=== PATIENT | male | born 1955 | race Caucasian/White ===

== ENCOUNTER 2024-06-27 13:37 | Inpatient (IN) | payer MEDICARE, OTHER ==
[~2024-06-27] VITALS: Ht 157.5 cm; Wt 43.5 kg
[~2024-06-27 13:37] MED LIST: AMOX-427 PO
[2024-06-27 14:16] LABS: BASOPHILS # (AUTO) 0.1 K/uL (0.0-0.2); BASOPHILS % (AUTO) 0.3 % (0.0-2.0); EOSINOPHILS # (AUTO) 0.2 K/uL (0.0-0.7); EOSINOPHILS % (AUTO) 0.9 % (0.0-6.0); HEMATOCRIT 28 % (39-51); HEMOGLOBIN 9.4 g/dL (13.5-17.5); LYMPHOCYTES % (AUTO) 5.5 % (20.0-44.0); MEAN CORPUSCULAR HEMOGLOBIN 32 PG (26.0-33.0); MEAN CORPUSCULAR HGB CONC 33 g/dl (31.0-36.0); MEAN CORPUSCULAR VOLUME 98 fL (80-96); MONOCYTES % (AUTO) 5.7 % (2.0-12.0); NEUTROPHILS % (AUTO) 87.6 % (43.0-81.0); PLATELET COUNT (AUTO) 566 K/uL (150-450); WHITE BLOOD COUNT (AUTO) 18.3 K/uL (4.3-11.0)
[2024-06-27 14:31] LABS: INR 1.02 (0.91-1.10); PARTIAL THROMBOPLASTIN TIME 32.9 SEC (24.3-34.3); PROTHROMBIN TIME 10.8 SECS (9.2-11.1)
[2024-06-27 14:58] LABS: ALBUMIN 1.9 g/dL (3.4-5.0); BILIRUBIN,DIRECT 0.1 mg/dL (0.0-0.2); BILIRUBIN,TOTAL 0.3 mg/dL (0.2-1.0); CALCIUM, SERUM 9.2 mg/dL (8.5-10.1); CREATININE 0.7 mg/dL (0.6-1.3); POTASSIUM 3.7 mmol/L (3.5-5.1); TOTAL PROTEIN, SERUM 8.3 g/dL (6.4-8.2)
[2024-06-27 15:02] LABS: LACTIC ACID 1.2 mmol/L (0.4-2.0)
[2024-06-27] MEDS: PIPERACILLIN /TAZOBACTAM 3.375 G in IV D5W 50 ML IV ONE (16:00)
[2024-06-27] MEDS: VANCOMYCIN 1 GM in IV D5W 250 ML IV ONE (16:31)
[2024-06-27] MEDS ORDERED: GABA300C PO (16:42)
[2024-06-27] MEDS ORDERED: BISA10SU11 RC (16:42)
[2024-06-27] MEDS ORDERED: CHOL100043 PO (16:42)
[2024-06-27] MEDS ORDERED: SERT50TA12 PO (16:42)
[2024-06-27] MEDS ORDERED: INSU100V7 SQ (16:42)
[2024-06-27] MEDS ORDERED: GLUC1KIT IM (16:42)
[2024-06-27] MEDS ORDERED: FLUT1BLS IH (16:42)
[2024-06-27] MEDS ORDERED: MULT-213 PO (16:42)
[2024-06-27] MEDS ORDERED: NITR0.4T48 SL (16:42)
[2024-06-27] MEDS ORDERED: FOLI0.8T3 PO (16:42)
[2024-06-27] MEDS ORDERED: CLOP75TA15 PO (16:42)
[2024-06-27] MEDS ORDERED: ATOR40TA PO (16:42)
[2024-06-27] MEDS ORDERED: EMPA25TA PO (16:42)
[2024-06-27] MEDS ORDERED: SENN-261 PO (16:42)
[2024-06-27] MEDS ORDERED: TAMS-12 PO (16:42)
[2024-06-27] MEDS ORDERED: POTA10TA11 PO (16:42)
[2024-06-27] MEDS ORDERED: OMEP20CA15 PO (16:42)
[2024-06-27] MEDS ORDERED: ACET325T53 PO (16:42)
[2024-06-27] MEDS ORDERED: ASPI-1169 PO (16:42)
[2024-06-27] MEDS ORDERED: ASCO500T10 PO (16:42)
[2024-06-27] MEDS ORDERED: IPRA3AMP23 NEB (16:42)
[2024-06-27] MEDS ORDERED: INSU100V39 SQ (16:42)
[2024-06-27] MEDS ORDERED: TRAM50TA2 PO (16:42)
[2024-06-27] MEDS ORDERED: SENNOSIDES 8.6 MG TABLET PO PRN (18:00)
[2024-06-27] MEDS ORDERED: ONDANSETRON HCL/PF 4 MG/2 ML VIAL IVP PRN (18:00)
[2024-06-27] MEDS: GABAPENTIN 300 MG CAPSULE PO SCH (18:17)
[2024-06-27] MEDS: ASPIRIN 81 MG TAB.CHEW PO SCH (18:17)
[2024-06-27] MEDS: LISINOPRIL (5MG) 5 MG TABLET PO SCH (18:17)
[2024-06-27] MEDS: ENOXAPARIN SODIUM 40 MG/0.4 ML DISP.SYRIN SQ SCH (18:18)
[2024-06-27] MEDS: INSULIN GLARGINE, 100 UNIT/ML CARTRIDGE SQ SCH (19:23)
[2024-06-27 19:50] VITALS: O2SAT 96
[2024-06-27] MEDS: BUDESONIDE RESPULE INH 0.5 MG/2 ML AMPUL.NEB NEB SCH (19:53)
[2024-06-27 20:00] VITALS: BP 140/80; TEMP 98.8; O2SAT 100; O2SAT 99
[2024-06-27] MEDS: ALBUTEROL FS 2.5 MG/3 ML VIAL.NEB NEB SCH (20:02)
[2024-06-27] MEDS: IV NS 0.9% 1,000 ML IV PRN (21:05)
[2024-06-27] MEDS: ATORVASTATIN 40 MG TABLET PO SCH (21:14)
[2024-06-27] MEDS: TAMSULOSIN 0.4 MG CAP.SR.24H PO SCH (21:14)
[2024-06-27] MEDS: BLOOD SUGAR DIAGNOSTIC 1 EACH STRIP IN SCH (21:32)
[2024-06-27] MEDS: INSULIN REGULAR, HUMAN 100 UNIT/ML 3 ML VIAL SQ PRN (21:34)
[2024-06-27] MEDS: PIPERACILLIN /TAZOBACTAM 3.375 G in IV D5W 100 ML IV SCH (23:03)
[2024-06-28] VITALS (9 sets, daily range): BP systolic 94–135; BP diastolic 50–66; TEMP 97.5–98.4; O2SAT 96–100
[2024-06-28] MEDS: VANCOMYCIN 750 MG in IV D5W 250 ML IV SCH (04:25)
[2024-06-28] MEDS: TRAMADOL HCL 50 MG TABLET PO PRN (05:01)
[2024-06-28 06:58] LABS: BASOPHILS % (AUTO) 0.2 % (0.0-2.0); EOSINOPHILS # (AUTO) 0.2 K/uL (0.0-0.7); EOSINOPHILS % (AUTO) 1.7 % (0.0-6.0); HEMATOCRIT 25 % (39-51); HEMOGLOBIN 8.7 g/dL (13.5-17.5); LYMPHOCYTES # (AUTO) 1.9 K/uL (0.8-4.8); MEAN CORPUSCULAR HEMOGLOBIN 33 PG (26.0-33.0); MEAN CORPUSCULAR HGB CONC 34 g/dl (31.0-36.0); MEAN CORPUSCULAR VOLUME 96 fL (80-96); MONOCYTES # (AUTO) 1.3 K/uL (0.1-1.30); MONOCYTES % (AUTO) 9.2 % (2.0-12.0); NEUTROPHILS # (AUTO) 10.3 K/uL (1.8-8.9); NEUTROPHILS % (AUTO) 74.9 % (43.0-81.0); PLATELET COUNT (AUTO) 477 K/uL (150-450); RED BLOOD CELL COUNT(AUTO) 2.64 MIL/uL (4.5-6.0); RED CELL DISTRIBUTION WIDTH 12.8 % (11.5-15.0); WHITE BLOOD COUNT (AUTO) 13.8 K/uL (4.3-11.0)
[2024-06-28 07:05] LABS: CALCIUM, SERUM 8.6 mg/dL (8.5-10.1); CREATININE 0.8 mg/dL (0.6-1.3); PHOSPHORUS 2.5 mg/dL (2.5-4.9); POTASSIUM 3.4 mmol/L (3.5-5.1)
[2024-06-28] MEDS: MULTIVIT W/MINERALS 1 TAB TABLET PO SCH (08:48)
[2024-06-28] MEDS: FOLIC ACID 1 MG TABLET PO SCH (08:48)
[2024-06-28] MEDS: SERTRALINE HCL 50 MG TABLET PO SCH (08:48)
[2024-06-28] MEDS: PANTOPRAZOLE 40 MG TABLET.DR PO SCH (08:48)
[2024-06-28] MEDS: CLOPIDOGREL BISULFATE 75 MG TABLET PO SCH (08:49)
[2024-06-28] MEDS: ASCORBIC ACID 500 MG TABLET PO SCH (08:49)
[2024-06-28] MEDS: CHOLECALCIFEROL 1,000 UNIT TABLET (VIT D3) PO SCH (08:49)
[2024-06-28] MEDS ORDERED: FLUTICASONE/VILANTEROL 1 EACH BLST.W.DEV IH SCH (09:00)
[2024-06-28] MEDS: EMPAGLIFLOZIN 25 MG TABLET PO SCH (09:26)
[2024-06-28] MEDS: POTASSIUM CHLORIDE 20 MEQ TAB.PRT.SR PO SCH (10:34)
[2024-06-28] MEDS ORDERED: VANCOMYCIN 1 GM VIAL ONE (12:44)
[2024-06-28] MEDS ORDERED: LIDOCAINE 1% INJ 50 ML MDV IJ ONE (12:44)
[2024-06-28] MEDS ORDERED: FENTANYL PF 100MCG/2ML AMPUL ONE (13:26)
[2024-06-28] MEDS ORDERED: ROCURONIUM BROMIDE 50 MG/5 ML ONE (13:26)
[2024-06-28] MEDS ORDERED: LIDOCAINE 1%-EPI 1:100,000 20 ML VIAL ONE (14:11)
[2024-06-28] MEDS ORDERED: BUPIVACAINE 0.5 % PF 150 MG/30 ML VIAL ONE (14:11)
[2024-06-28] MEDS ORDERED: POLYMYXIN B SULFATE 500,000 UNITS ONE (14:56)
[2024-06-28 20:58] LABS: THYROID STIMULATING HORMONE 1.56 uIU/mL (0.358-3.74)
[2024-06-28 23:32] LABS: HEMOGLOBIN 8.3 g/dL (13.5-17.5)
[2024-06-29] VITALS (40 sets, daily range): BP systolic 87–156; BP diastolic 51–94; TEMP 97.9–98.8; O2SAT 94–99
[2024-06-29 06:57] LABS: CALCIUM, SERUM 8.7 mg/dL (8.5-10.1); CREATININE 0.7 mg/dL (0.6-1.3); PHOSPHORUS 3.2 mg/dL (2.5-4.9); POTASSIUM 4.1 mmol/L (3.5-5.1)
[2024-06-29 08:23] LABS: BASOPHILS % (AUTO) 0.2 % (0.0-2.0); EOSINOPHILS # (AUTO) 0.2 K/uL (0.0-0.7); HEMATOCRIT 23 % (39-51); HEMOGLOBIN 7.5 g/dL (13.5-17.5); LYMPHOCYTES % (AUTO) 6.4 % (20.0-44.0); MEAN CORPUSCULAR HEMOGLOBIN 32 PG (26.0-33.0); MEAN CORPUSCULAR HGB CONC 33 g/dl (31.0-36.0); MEAN CORPUSCULAR VOLUME 97 fL (80-96); MONOCYTES % (AUTO) 6.3 % (2.0-12.0); NEUTROPHILS # (AUTO) 13.3 K/uL (1.8-8.9); NEUTROPHILS % (AUTO) 86.1 % (43.0-81.0); PLATELET COUNT (AUTO) 431 K/uL (150-450); RED BLOOD CELL COUNT(AUTO) 2.36 MIL/uL (4.5-6.0); RED CELL DISTRIBUTION WIDTH 12.9 % (11.5-15.0); WHITE BLOOD COUNT (AUTO) 15.5 K/uL (4.3-11.0)
[2024-06-29] MEDS ORDERED: MUPIROCIN OINT 2% 22 GM TUBE TP SCH (09:00)
[2024-06-29] MEDS: MUPIROCIN OINT 2% 22 GM TUBE TP SCH (09:18)
[2024-06-29] MEDS ORDERED: LIDOCAINE HCL/MPF 1% 30 ML VIAL IJ ONE (12:41)
[2024-06-29] MEDS ORDERED: FENTANYL PF 100MCG/2ML AMPUL ONE (12:51)
[2024-06-29] MEDS ORDERED: HEPARIN SODIUM, PORCINE 1,000 UNIT/ML VIAL ONE (13:07)
[2024-06-30] VITALS (26 sets, daily range): BP systolic 92–153; BP diastolic 49–81; TEMP 98–98.3; O2SAT 94–100
[2024-06-30] MEDS: DEXTROSE 50%-WATER 50 ML DISP.SYRIN IV PRN (07:34)
[2024-06-30 10:24] LABS: CALCIUM, SERUM 8.9 mg/dL (8.5-10.1); CREATININE 0.7 mg/dL (0.6-1.3); POTASSIUM 3.4 mmol/L (3.5-5.1)
[2024-06-30 10:35] LABS: BASOPHILS # (AUTO) 0.1 K/uL (0.0-0.2); BASOPHILS % (AUTO) 0.3 % (0.0-2.0); EOSINOPHILS # (AUTO) 0.2 K/uL (0.0-0.7); EOSINOPHILS % (AUTO) 1.1 % (0.0-6.0); HEMATOCRIT 21 % (39-51); HEMOGLOBIN 7.1 g/dL (13.5-17.5); LYMPHOCYTES # (AUTO) 2.5 K/uL (0.8-4.8); LYMPHOCYTES % (AUTO) 14.6 % (20.0-44.0); MEAN CORPUSCULAR HEMOGLOBIN 31 PG (26.0-33.0); MEAN CORPUSCULAR HGB CONC 33 g/dl (31.0-36.0); MEAN CORPUSCULAR VOLUME 95 fL (80-96); MONOCYTES # (AUTO) 1.5 K/uL (0.1-1.30); MONOCYTES % (AUTO) 8.8 % (2.0-12.0); NEUTROPHILS # (AUTO) 12.8 K/uL (1.8-8.9); NEUTROPHILS % (AUTO) 75.2 % (43.0-81.0); PLATELET COUNT (AUTO) 375 K/uL (150-450); RED BLOOD CELL COUNT(AUTO) 2.25 MIL/uL (4.5-6.0); RED CELL DISTRIBUTION WIDTH 14.4 % (11.5-15.0)
[2024-06-30] MEDS: VANCOMYCIN 500 MG in IV D5W 100ml IV SCH (17:40)
[2024-07-01] VITALS (12 sets, daily range): BP systolic 119–156; BP diastolic 60–80; TEMP 97.9–98.6; O2SAT 97–99
[2024-07-01] MEDS ORDERED: DEXTROSE 50%-WATER 50 ML DISP.SYRIN IV PRN (10:30)
[2024-07-01] MEDS: ACETAMINOPHEN 325 MG TABLET PO PRN (11:03)
[2024-07-01 11:41] LABS: BASOPHILS % (AUTO) 0.3 % (0.0-2.0); EOSINOPHILS # (AUTO) 0.1 K/uL (0.0-0.7); EOSINOPHILS % (AUTO) 0.4 % (0.0-6.0); HEMATOCRIT 26 % (39-51); HEMOGLOBIN 8.7 g/dL (13.5-17.5); LYMPHOCYTES # (AUTO) 1.4 K/uL (0.8-4.8); LYMPHOCYTES % (AUTO) 7.5 % (20.0-44.0); MEAN CORPUSCULAR HEMOGLOBIN 32 PG (26.0-33.0); MEAN CORPUSCULAR HGB CONC 34 g/dl (31.0-36.0); MEAN CORPUSCULAR VOLUME 94 fL (80-96); MONOCYTES # (AUTO) 1.1 K/uL (0.1-1.30); MONOCYTES % (AUTO) 5.8 % (2.0-12.0); NEUTROPHILS # (AUTO) 15.8 K/uL (1.8-8.9); PLATELET COUNT (AUTO) 329 K/uL (150-450); RED BLOOD CELL COUNT(AUTO) 2.72 MIL/uL (4.5-6.0); RED CELL DISTRIBUTION WIDTH 13.7 % (11.5-15.0); WHITE BLOOD COUNT (AUTO) 18.4 K/uL (4.3-11.0)
[2024-07-01 11:50] LABS: CALCIUM, SERUM 7.9 mg/dL (8.5-10.1); CREATININE 0.4 mg/dL (0.6-1.3)
[2024-07-01] MEDS ORDERED: BLOOD SUGAR DIAGNOSTIC 1 EACH STRIP VI SCH (12:00)
[2024-07-01 12:06] LABS: POTASSIUM 2.6 mmol/L (3.5-5.1)
[2024-07-01] MEDS ORDERED: POTASSIUM CHLORIDE 20 MEQ TAB.PRT.SR PO SCH (12:30)
[2024-07-01] MEDS: POTASSIUM CHLORIDE 20 MEQ TAB.PRT.SR PO SCH (12:52)
[2024-07-01] MEDS: VANCOMYCIN 500 MG in IV D5W 100ml IV SCH (13:58)
[2024-07-01] MEDS: *INSULIN REGULAR(HUMULIN R)HUM 100 UNIT/ML VIAL SQ PRN (23:38)
[2024-07-02] VITALS (11 sets, daily range): BP systolic 119–153; BP diastolic 56–68; TEMP 98.2–98.4; O2SAT 94–99
[2024-07-02 08:11] LABS: CALCIUM, SERUM 8.3 mg/dL (8.5-10.1); CREATININE 0.5 mg/dL (0.6-1.3); POTASSIUM 3.6 mmol/L (3.5-5.1)
[2024-07-02] MEDS: INSULIN REGULAR, HUMAN 100 UNIT/ML 3 ML VIAL SQ PRN (13:57)
[2024-07-02] MEDS: GLUCERNA SHAKE 237 ML CAN PO SCH (17:00)
[2024-07-03 04:00] VITALS: BP 106/65; TEMP 97.7; O2SAT 100
[2024-07-03] MEDS ORDERED: DEXTROSE 50%-WATER 50 ML DISP.SYRIN ONE (06:29)
[2024-07-03 07:32] VITALS: O2SAT 99
[2024-07-03 08:00] LABS: CALCIUM, SERUM 8.3 mg/dL (8.5-10.1); CREATININE 0.4 mg/dL (0.6-1.3)
[2024-07-03 08:56] LABS: BASOPHILS % (AUTO) 0.2 % (0.0-2.0); EOSINOPHILS # (AUTO) 0.1 K/uL (0.0-0.7); EOSINOPHILS % (AUTO) 0.7 % (0.0-6.0); HEMATOCRIT 28 % (39-51); HEMOGLOBIN 9.4 g/dL (13.5-17.5); LYMPHOCYTES # (AUTO) 1.1 K/uL (0.8-4.8); LYMPHOCYTES % (AUTO) 7.7 % (20.0-44.0); MEAN CORPUSCULAR HEMOGLOBIN 32 PG (26.0-33.0); MEAN CORPUSCULAR HGB CONC 33 g/dl (31.0-36.0); MEAN CORPUSCULAR VOLUME 96 fL (80-96); MONOCYTES # (AUTO) 0.8 K/uL (0.1-1.30); MONOCYTES % (AUTO) 5.6 % (2.0-12.0); NEUTROPHILS % (AUTO) 85.8 % (43.0-81.0); PLATELET COUNT (AUTO) 410 K/uL (150-450); RED BLOOD CELL COUNT(AUTO) 2.96 MIL/uL (4.5-6.0); RED CELL DISTRIBUTION WIDTH 13.9 % (11.5-15.0)
[2024-07-03 12:00] VITALS: BP 106/65; TEMP 97.7; O2SAT 100
[2024-07-03] MEDS: POTASSIUM CHLORIDE 20 MEQ TAB.PRT.SR PO SCH (13:02)
[2024-07-03 20:00] VITALS: BP 164/78; TEMP 98.2; O2SAT 98
[2024-07-03 22:27] VITALS: BP 130/60; O2SAT 98
[2024-07-03] MEDS: TRAMADOL HCL 50 MG TABLET PO SCH (23:11)
[2024-07-04 04:00] VITALS: BP 148/74; TEMP 97.7; O2SAT 98
[2024-07-04 07:06] VITALS: O2SAT 96
[2024-07-04 07:49] LABS: BASOPHILS # (AUTO) 0.1 K/uL (0.0-0.2); BASOPHILS % (AUTO) 0.4 % (0.0-2.0); EOSINOPHILS # (AUTO) 0.7 K/uL (0.0-0.7); EOSINOPHILS % (AUTO) 4.6 % (0.0-6.0); HEMATOCRIT 28 % (39-51); HEMOGLOBIN 9.5 g/dL (13.5-17.5); LYMPHOCYTES # (AUTO) 2.6 K/uL (0.8-4.8); MEAN CORPUSCULAR HEMOGLOBIN 33 PG (26.0-33.0); MEAN CORPUSCULAR HGB CONC 35 g/dl (31.0-36.0); MEAN CORPUSCULAR VOLUME 96 fL (80-96); MONOCYTES # (AUTO) 0.8 K/uL (0.1-1.30); MONOCYTES % (AUTO) 5.5 % (2.0-12.0); NEUTROPHILS # (AUTO) 11.1 K/uL (1.8-8.9); NEUTROPHILS % (AUTO) 72.5 % (43.0-81.0); PLATELET COUNT (AUTO) 463 K/uL (150-450); RED BLOOD CELL COUNT(AUTO) 2.89 MIL/uL (4.5-6.0); RED CELL DISTRIBUTION WIDTH 13.5 % (11.5-15.0); WHITE BLOOD COUNT (AUTO) 15.3 K/uL (4.3-11.0)
[2024-07-04 08:20] LABS: CALCIUM, SERUM 8.7 mg/dL (8.5-10.1); CREATININE 0.4 mg/dL (0.6-1.3); MAGNESIUM 2.1 mg/dL (1.8-2.4); PHOSPHORUS 2.6 mg/dL (2.5-4.9); POTASSIUM 3.9 mmol/L (3.5-5.1)
[2024-07-04] MEDS: THERAHONEY GEL 1.5 OZ TUBE TP SCH (08:47)
[2024-07-04] MEDS: INSULIN GLARGINE, 100 UNIT/ML CARTRIDGE SQ SCH (10:13)
[2024-07-04 16:00] VITALS: BP 108/65; TEMP 97.3; O2SAT 100
[2024-07-04 20:00] VITALS: BP 95/60; TEMP 97.7; O2SAT 98
[2024-07-04 20:01] VITALS: O2SAT 98
[2024-07-04 20:16] VITALS: O2SAT 99
[2024-07-05 01:48] VITALS: O2SAT 97
[2024-07-05 02:03] VITALS: O2SAT 99
[2024-07-05 04:00] VITALS: BP 116/67; TEMP 97.5; O2SAT 99
[2024-07-05 11:47] LABS: CALCIUM, SERUM 8.6 mg/dL (8.5-10.1); CREATININE 0.7 mg/dL (0.6-1.3); POTASSIUM 3.8 mmol/L (3.5-5.1)
[2024-07-05 12:14] VITALS: BP 116/65; TEMP 97.3; O2SAT 100
[2024-07-05] MEDS: METRONIDAZOLE 500MG/ NS 100ML 500 MG in PREMIX 1 EA IV SCH (16:45)
[2024-07-05] MEDS: CEFTRIAXONE 1 G in IV D5W 50 ML IV SCH (16:45)
[2024-07-05] MEDS: THERAHONEY GEL 1.5 OZ TUBE TP SCH (17:04)
[2024-07-05 19:45] VITALS: O2SAT 98
[2024-07-05 20:00] VITALS: BP 107/68; TEMP 97.9; O2SAT 98
[2024-07-06] VITALS (13 sets, daily range): BP systolic 86–108; BP diastolic 58–71; TEMP 97.7–98.8; O2SAT 96–99
[2024-07-06 07:59] LABS: BASOPHILS # (AUTO) 0.1 K/uL (0.0-0.2); BASOPHILS % (AUTO) 0.4 % (0.0-2.0); EOSINOPHILS # (AUTO) 0.6 K/uL (0.0-0.7); HEMATOCRIT 29 % (39-51); HEMOGLOBIN 9.4 g/dL (13.5-17.5); LYMPHOCYTES # (AUTO) 2.8 K/uL (0.8-4.8); LYMPHOCYTES % (AUTO) 19.8 % (20.0-44.0); MEAN CORPUSCULAR HEMOGLOBIN 32 PG (26.0-33.0); MEAN CORPUSCULAR HGB CONC 33 g/dl (31.0-36.0); MEAN CORPUSCULAR VOLUME 96 fL (80-96); MONOCYTES # (AUTO) 0.9 K/uL (0.1-1.30); MONOCYTES % (AUTO) 6.2 % (2.0-12.0); NEUTROPHILS % (AUTO) 69.6 % (43.0-81.0); PLATELET COUNT (AUTO) 542 K/uL (150-450); RED BLOOD CELL COUNT(AUTO) 2.98 MIL/uL (4.5-6.0); RED CELL DISTRIBUTION WIDTH 13.9 % (11.5-15.0); WHITE BLOOD COUNT (AUTO) 14.4 K/uL (4.3-11.0)
[2024-07-06 08:00] LABS: INR 1.02 (0.91-1.10); PARTIAL THROMBOPLASTIN TIME 35.3 SEC (24.3-34.3); PROTHROMBIN TIME 10.8 SECS (9.2-11.1)
[2024-07-06] MEDS ORDERED: BUPIVACAINE 0.25% 75 MG/30 ML VIAL ONE (08:52)
[2024-07-06] MEDS ORDERED: LIDOCAINE 1%-EPI 1:100,000 20 ML VIAL ONE (08:52)
[2024-07-06] MEDS ORDERED: LIDOCAINE 1% INJ 50 ML MDV IJ ONE (08:52)
[2024-07-06] MEDS ORDERED: ANESTHESIA TRAY IN PYXIS 1 EA TRAY MC ONE (08:52)
[2024-07-06] MEDS ORDERED: VANCOMYCIN 1 GM VIAL ONE (08:52)
[2024-07-06] MEDS ORDERED: BUPIVACAINE 0.5 % PF 150 MG/30 ML VIAL ONE (08:52)
[2024-07-06] MEDS ORDERED: MIDAZOLAM HCL 2 MG/2ML VIAL ONE (09:38)
[2024-07-06] MEDS ORDERED: ALBUMIN 5% 250 ML IV ONE ×2 (09:38→10:42)
[2024-07-06] MEDS ORDERED: FENTANYL PF 100MCG/2ML AMPUL ONE (09:38)
[2024-07-06] MEDS ORDERED: FAMOTIDINE/PF INJ 20 MG/2 ML VIAL IV ONE (09:39)
[2024-07-06] MEDS: IV NS 0.9% 500 ML IV ONE ×2 (15:00→16:37)
[2024-07-06 16:58] LABS: HEMOGLOBIN 6.6 g/dL (13.5-17.5)
[2024-07-06 19:34] LABS: CALCIUM, SERUM 8.5 mg/dL (8.5-10.1); CREATININE 0.5 mg/dL (0.6-1.3); POTASSIUM 3.6 mmol/L (3.5-5.1)
[2024-07-07] VITALS (9 sets, daily range): BP systolic 93–107; BP diastolic 58–72; TEMP 98–98.8; O2SAT 96–100
[2024-07-07 07:21] LABS: BASOPHILS % (AUTO) 0.3 % (0.0-2.0); EOSINOPHILS % (AUTO) 0.2 % (0.0-6.0); HEMATOCRIT 24 % (39-51); HEMOGLOBIN 7.8 g/dL (13.5-17.5); LYMPHOCYTES # (AUTO) 1.7 K/uL (0.8-4.8); LYMPHOCYTES % (AUTO) 9.1 % (20.0-44.0); MEAN CORPUSCULAR HEMOGLOBIN 29 PG (26.0-33.0); MEAN CORPUSCULAR HGB CONC 33 g/dl (31.0-36.0); MEAN CORPUSCULAR VOLUME 89 fL (80-96); MONOCYTES # (AUTO) 1.1 K/uL (0.1-1.30); NEUTROPHILS # (AUTO) 15.4 K/uL (1.8-8.9); NEUTROPHILS % (AUTO) 84.4 % (43.0-81.0); PLATELET COUNT (AUTO) 438 K/uL (150-450); RED BLOOD CELL COUNT(AUTO) 2.68 MIL/uL (4.5-6.0); RED CELL DISTRIBUTION WIDTH 24.8 % (11.5-15.0); WHITE BLOOD COUNT (AUTO) 18.3 K/uL (4.3-11.0)
[2024-07-07] MEDS: PIPERACILLIN /TAZOBACTAM 3.375 G in IV D5W 100 ML IV SCH (19:52)
[2024-07-08] VITALS (12 sets, daily range): BP systolic 93–135; BP diastolic 51–84; TEMP 97.3–98.4; O2SAT 98–100
[2024-07-08 06:47] LABS: BASOPHILS % (AUTO) 0.3 % (0.0-2.0); EOSINOPHILS # (AUTO) 0.2 K/uL (0.0-0.7); HEMATOCRIT 21 % (39-51); LYMPHOCYTES % (AUTO) 18.7 % (20.0-44.0); MEAN CORPUSCULAR HEMOGLOBIN 29 PG (26.0-33.0); MEAN CORPUSCULAR HGB CONC 33 g/dl (31.0-36.0); MEAN CORPUSCULAR VOLUME 88 fL (80-96); MONOCYTES # (AUTO) 1.4 K/uL (0.1-1.30); MONOCYTES % (AUTO) 8.8 % (2.0-12.0); NEUTROPHILS # (AUTO) 11.4 K/uL (1.8-8.9); NEUTROPHILS % (AUTO) 71.2 % (43.0-81.0); PLATELET COUNT (AUTO) 441 K/uL (150-450); RED BLOOD CELL COUNT(AUTO) 2.43 MIL/uL (4.5-6.0); RED CELL DISTRIBUTION WIDTH 24.9 % (11.5-15.0); WHITE BLOOD COUNT (AUTO) 16.1 K/uL (4.3-11.0)
[2024-07-08 07:44] LABS: HEMOGLOBIN 7.1 g/dL (13.5-17.5)
[2024-07-08 09:13] LABS: CALCIUM, SERUM 8.3 mg/dL (8.5-10.1); CREATININE 0.5 mg/dL (0.6-1.3)
[2024-07-08 09:19] LABS: POTASSIUM 2.5 mmol/L (3.5-5.1)
[2024-07-08] MEDS: POTASSIUM CL. PREMIX PERIPHER. 50 ML IV SCH (10:10)
[2024-07-09] VITALS (8 sets, daily range): BP systolic 109–130; BP diastolic 68–78; TEMP 97.7–98.2; O2SAT 96–99
[2024-07-09] MEDS: IV NS 0.9% 1,000 ML BAG IV PRN (01:27)
[2024-07-09 08:16] LABS: CALCIUM, SERUM 8.1 mg/dL (8.5-10.1); CREATININE 0.4 mg/dL (0.6-1.3); MAGNESIUM 1.9 mg/dL (1.8-2.4); PHOSPHORUS 2.2 mg/dL (2.5-4.9); POTASSIUM 3.4 mmol/L (3.5-5.1)
[2024-07-09 09:58] LABS: BASOPHILS % (AUTO) 0.2 % (0.0-2.0); EOSINOPHILS # (AUTO) 0.4 K/uL (0.0-0.7); EOSINOPHILS % (AUTO) 2.1 % (0.0-6.0); HEMATOCRIT 27 % (39-51); LYMPHOCYTES # (AUTO) 2.8 K/uL (0.8-4.8); MEAN CORPUSCULAR HEMOGLOBIN 30 PG (26.0-33.0); MEAN CORPUSCULAR HGB CONC 34 g/dl (31.0-36.0); MEAN CORPUSCULAR VOLUME 90 fL (80-96); MONOCYTES # (AUTO) 1.3 K/uL (0.1-1.30); MONOCYTES % (AUTO) 7.6 % (2.0-12.0); NEUTROPHILS # (AUTO) 12.2 K/uL (1.8-8.9); NEUTROPHILS % (AUTO) 73.1 % (43.0-81.0); PLATELET COUNT (AUTO) 447 K/uL (150-450); RED BLOOD CELL COUNT(AUTO) 3.01 MIL/uL (4.5-6.0); RED CELL DISTRIBUTION WIDTH 22.1 % (11.5-15.0); WHITE BLOOD COUNT (AUTO) 16.6 K/uL (4.3-11.0)
[2024-07-09] MEDS: POTASSIUM CHLORIDE 20 MEQ TAB.PRT.SR PO SCH (10:23)
[2024-07-09 13:07] LABS: *SPE A/G RATIO 0.4 (0.7-1.7); *SPE ALPHA-1-GLOBULIN 0.4 g/dL (0.0-0.4); *SPE ALPHA-2-GLOBULIN 1.1 g/dL (0.4-1.0); *SPE BETA GLOBULIN 1.8 g/dL (0.7-1.3); *SPE GLOBULIN, TOTAL 4.6 g/dL (2.2-3.9); *SPE M-SPIKE Not Observed g/dL (Not Observed); *SPE PROTEIN TOTAL 6.6 g/dL (6.0-8.5); *SPEGAMMA GLOBULIN 1.4 g/dL (0.4-1.8)
[2024-07-09] MEDS: K PHOS NEUTRAL 250 MG TABLET PO ONE (17:11)
[2024-07-09] MEDS: INSULIN GLARGINE, 100 UNIT/ML CARTRIDGE SQ SCH (17:14)
[2024-07-09] MEDS: MORPHINE SULFATE INJ 2 MG/ML DISP.SYRIN IV PRN (17:17)
[2024-07-10] VITALS: BP 119/88; TEMP 98.2; O2SAT 96
[2024-07-10 04:00] VITALS: BP 110/76; TEMP 98.1; O2SAT 99
[2024-07-10 08:00] VITALS: BP 125/84; TEMP 97.7; O2SAT 97
[2024-07-10] MEDS: EMPAGLIFLOZIN 25 MG TABLET PO SCH (08:29)
[2024-07-10] MEDS: EMPAGLIFLOZIN 10 MG TABLET PO SCH (09:00)
[2024-07-10 12:00] VITALS: BP_SYST 136; BP_SYST 152; BP_DIAS 82; BP_DIAS 83; TEMP 97.2; TEMP 97.5; O2SAT 98
[2024-07-10 16:00] VITALS: BP 136/95; TEMP 98.1; O2SAT 99
[2024-07-10 17:12] LABS: CALCIUM, SERUM 8.4 mg/dL (8.5-10.1); CREATININE 0.5 mg/dL (0.6-1.3); POTASSIUM 3.4 mmol/L (3.5-5.1)
[2024-07-10 17:57] LABS: BASOPHILS % (AUTO) 0.3 % (0.0-2.0); EOSINOPHILS # (AUTO) 0.2 K/uL (0.0-0.7); EOSINOPHILS % (AUTO) 1.4 % (0.0-6.0); HEMATOCRIT 32 % (39-51); HEMOGLOBIN 10.6 g/dL (13.5-17.5); LYMPHOCYTES # (AUTO) 1.8 K/uL (0.8-4.8); LYMPHOCYTES % (AUTO) 12.3 % (20.0-44.0); MEAN CORPUSCULAR HEMOGLOBIN 30 PG (26.0-33.0); MEAN CORPUSCULAR HGB CONC 33 g/dl (31.0-36.0); MEAN CORPUSCULAR VOLUME 90 fL (80-96); MONOCYTES # (AUTO) 0.7 K/uL (0.1-1.30); MONOCYTES % (AUTO) 4.8 % (2.0-12.0); NEUTROPHILS # (AUTO) 11.9 K/uL (1.8-8.9); NEUTROPHILS % (AUTO) 81.2 % (43.0-81.0); PLATELET COUNT (AUTO) 508 K/uL (150-450); RED BLOOD CELL COUNT(AUTO) 3.54 MIL/uL (4.5-6.0); RED CELL DISTRIBUTION WIDTH 21.1 % (11.5-15.0); WHITE BLOOD COUNT (AUTO) 14.7 K/uL (4.3-11.0)
[2024-07-10 19:06] LABS: ANISOCYTOSIS 1+; LYMPHOCYTES % (MANUAL) 12 % (16-48); MONOCYTES % (MANUAL) 4 % (0-11.0); NEUTROPHILS % (MANUAL) 84 (42-76); PLATELET ESTIMATE INCREASED
[2024-07-10 20:00] VITALS: BP 140/87; TEMP 98; O2SAT 100
[2024-07-11] VITALS (9 sets, daily range): BP systolic 86–143; BP diastolic 61–85; TEMP 97.9–98.2; O2SAT 98–100
[2024-07-11 07:23] LABS: BASOPHILS % (AUTO) 0.2 % (0.0-2.0); EOSINOPHILS # (AUTO) 0.2 K/uL (0.0-0.7); EOSINOPHILS % (AUTO) 1.8 % (0.0-6.0); HEMATOCRIT 31 % (39-51); LYMPHOCYTES # (AUTO) 2.1 K/uL (0.8-4.8); MEAN CORPUSCULAR HEMOGLOBIN 29 PG (26.0-33.0); MEAN CORPUSCULAR HGB CONC 33 g/dl (31.0-36.0); MEAN CORPUSCULAR VOLUME 90 fL (80-96); MONOCYTES # (AUTO) 0.7 K/uL (0.1-1.30); MONOCYTES % (AUTO) 5.8 % (2.0-12.0); NEUTROPHILS # (AUTO) 8.8 K/uL (1.8-8.9); NEUTROPHILS % (AUTO) 74.2 % (43.0-81.0); PLATELET COUNT (AUTO) 493 K/uL (150-450); RED BLOOD CELL COUNT(AUTO) 3.42 MIL/uL (4.5-6.0); WHITE BLOOD COUNT (AUTO) 11.9 K/uL (4.3-11.0)
[2024-07-11 07:51] LABS: CALCIUM, SERUM 8.8 mg/dL (8.5-10.1); CREATININE 0.6 mg/dL (0.6-1.3); MAGNESIUM 2.1 mg/dL (1.8-2.4); PHOSPHORUS 3.6 mg/dL (2.5-4.9); POTASSIUM 3.2 mmol/L (3.5-5.1)
[2024-07-11] MEDS: POTASSIUM CHLORIDE 20 MEQ TAB.PRT.SR PO SCH (09:51)
[2024-07-11] MEDS: ALBUMIN 25% 25 GM in PREMIX 1 EA IV ONE (11:30)
[2024-07-11] MEDS: ALBUMIN 25% 12.5 GM/50 ML BOTTLE IV ONE (12:30)
[2024-07-12] VITALS: BP 116/76; TEMP 97.9; O2SAT 97
[2024-07-12 04:00] VITALS: BP 110/71; TEMP 97.4; O2SAT 96
[2024-07-12 08:00] VITALS: BP 120/64; TEMP 97.9; O2SAT 98
[2024-07-12 08:14] LABS: BASOPHILS # (AUTO) 0.1 K/uL (0.0-0.2); BASOPHILS % (AUTO) 0.5 % (0.0-2.0); EOSINOPHILS # (AUTO) 0.4 K/uL (0.0-0.7); EOSINOPHILS % (AUTO) 3.6 % (0.0-6.0); HEMATOCRIT 30 % (39-51); HEMOGLOBIN 9.6 g/dL (13.5-17.5); LYMPHOCYTES # (AUTO) 2.8 K/uL (0.8-4.8); LYMPHOCYTES % (AUTO) 24.3 % (20.0-44.0); MEAN CORPUSCULAR HEMOGLOBIN 29 PG (26.0-33.0); MEAN CORPUSCULAR HGB CONC 32 g/dl (31.0-36.0); MEAN CORPUSCULAR VOLUME 91 fL (80-96); MONOCYTES # (AUTO) 0.7 K/uL (0.1-1.30); MONOCYTES % (AUTO) 6.5 % (2.0-12.0); NEUTROPHILS # (AUTO) 7.5 K/uL (1.8-8.9); NEUTROPHILS % (AUTO) 65.1 % (43.0-81.0); PLATELET COUNT (AUTO) 461 K/uL (150-450); RED BLOOD CELL COUNT(AUTO) 3.28 MIL/uL (4.5-6.0); RED CELL DISTRIBUTION WIDTH 21.8 % (11.5-15.0); WHITE BLOOD COUNT (AUTO) 11.5 K/uL (4.3-11.0)
[2024-07-12 08:16] LABS: CALCIUM, SERUM 9.1 mg/dL (8.5-10.1); CREATININE 0.7 mg/dL (0.6-1.3); MAGNESIUM 2.4 mg/dL (1.8-2.4); PHOSPHORUS 3.3 mg/dL (2.5-4.9); POTASSIUM 3.9 mmol/L (3.5-5.1)
[2024-07-12] MEDS ORDERED: ERTA1VIA4 IJ (11:43)
[2024-07-12 12:00] VITALS: BP 141/69; TEMP 97.9; O2SAT 97
== END 2024-07-12 14:46 | DRG 853 ==
LOC: ER 13:40 → MED 17:09 → ICU 06-29 14:36 → TELE1 06-30 06:09 → MEDSG1 07-01 09:49 → TELE1 07-08 10:16
PROVIDERS: ADMIT Nurse Practitioner Acute Care; ATTEND Nurse Practitioner Acute Care
PROC: 0Y6N0ZB Detachment at Left Foot, Partial 2nd Ray, Open Approach (ICD-10-PCS; 2024-06-28)
PROC: 0Y6N0ZC Detachment at Left Foot, Partial 3rd Ray, Open Approach (ICD-10-PCS; 2024-06-28)
PROC: 0Y6N0ZD Detachment at Left Foot, Partial 4th Ray, Open Approach (ICD-10-PCS; 2024-06-28)
PROC: 0Y6N0ZF Detachment at Left Foot, Partial 5th Ray, Open Approach (ICD-10-PCS; 2024-06-28)
PROC: 0JBN0ZZ Excision of Right Lower Leg Subcutaneous Tissue and Fascia, Open Approach (ICD-10-PCS; principal; 2024-06-28 13:55)
PROC: 0Y6N0Z9 Detachment at Left Foot, Partial 1st Ray, Open Approach (ICD-10-PCS; 2024-06-28 13:55)
PROC: 047L3ZZ Dilation of Left Femoral Artery, Percutaneous Approach (ICD-10-PCS; 2024-06-29)
PROC: 04CL3ZZ Extirpation of Matter from Left Femoral Artery, Percutaneous Approach (ICD-10-PCS; 2024-06-29)
PROC: B41GYZZ Fluoroscopy of Left Lower Extremity Arteries using Other Contrast (ICD-10-PCS; 2024-06-29)
PROC: 0Y6N0Z0 Detachment at Left Foot, Complete, Open Approach (ICD-10-PCS; 2024-07-06)
PROC: 0QBM0ZZ Excision of Left Tarsal, Open Approach (ICD-10-PCS; 2024-07-06)
PROC: 0JRR07Z Replacement of Left Foot Subcutaneous Tissue and Fascia with Autologous Tissue Substitute, Open Approach (ICD-10-PCS; 2024-07-06)
PROC: 0KBW0ZZ Excision of Left Foot Muscle, Open Approach (ICD-10-PCS; 2024-07-06)
PROC: 0HRNXK3 Replacement of Left Foot Skin with Nonautologous Tissue Substitute, Full Thickness, External Approach (ICD-10-PCS; 2024-07-06)
PROC: 30233N1 Transfusion of Nonautologous Red Blood Cells into Peripheral Vein, Percutaneous Approach (ICD-10-PCS; 2024-07-06)
DX: A41.9 Sepsis, unspecified organism (principal); A48.0 Gas gangrene; L89.153 Pressure ulcer of sacral region, stage 3; E43 Unspecified severe protein-calorie malnutrition; E11.52 Type 2 diabetes mellitus with diabetic peripheral angiopathy with gangrene; I70.268 Atherosclerosis of native arteries of extremities with gangrene, other extremity; L97.324 Non-pressure chronic ulcer of left ankle with necrosis of bone; L97.424 Non-pressure chronic ulcer of left heel and midfoot with necrosis of bone; T87.81 Dehiscence of amputation stump; D64.9 Anemia, unspecified; E11.22 Type 2 diabetes mellitus with diabetic chronic kidney disease; M17.12 Unilateral primary osteoarthritis, left knee; E11.40 Type 2 diabetes mellitus with diabetic neuropathy, unspecified; E11.621 Type 2 diabetes mellitus with foot ulcer; E78.5 Hyperlipidemia, unspecified; F32.A Depression, unspecified; F41.9 Anxiety disorder, unspecified; N40.0 Benign prostatic hyperplasia without lower urinary tract symptoms; I12.9 Hypertensive chronic kidney disease with stage 1 through stage 4 chronic kidney disease, or unspecified chronic kidney disease; N18.9 Chronic kidney disease, unspecified; Z89.512 Acquired absence of left leg below knee; Z98.61 Coronary angioplasty status; J45.909 Unspecified asthma, uncomplicated; E88.09 Other disorders of plasma-protein metabolism, not elsewhere classified; Y83.5 Amputation of limb(s) as the cause of abnormal reaction of the patient, or of later complication, without mention of misadventure at the time of the procedure; Y92.129 Unspecified place in nursing home as the place of occurrence of the external cause; I65.22 Occlusion and stenosis of left carotid artery; Z79.899 Other long term (current) drug therapy; Z79.02 Long term (current) use of antithrombotics/antiplatelets; Z79.51 Long term (current) use of inhaled steroids; Z79.84 Long term (current) use of oral hypoglycemic drugs; Z79.82 Long term (current) use of aspirin
CPT/HCPCS: 36246; 36415; 37225; 70450-TC; 71045-TC; 73564-TC; 73630-TC; 73700-TC; 75625; 75710-TC; 80048-TC; 80061-TC; 80076-TC; 80202-TC; 82728-TC; 82962-TC; 83540-TC; 83605-TC; 83735-TC; 84100-TC; 84155; 84165; 84439-TC; 84443-TC; 85025-TC; 85027-TC; 85652-TC; 85730-TC; 86850-TC; 87040-TC; 87081-TC; 87102-TC; 88305-TC; 88311-TC; 88312-TC; 93307-TC; 94760-TC; 94761-TC; 94799-TC; A4216; A4223; A6253; A6403; C1714; C1725; C1887; C1894; G0269; G0378; G0500; J0690; J0696; J1308; J1644; J1650; J1815; J2250; J2270; J2405; J2543; J2704; J3010; J3370; J3371; J3480; J3490; J7030; J7040; J7050; J7060; L1830; P9016; P9045; P9047; Q4104